=== PATIENT | female | born 2000 | race Caucasian/White ===

== ENCOUNTER 2019-12-26 16:25 | Emergency (ER) | payer OTHER, SELFPAY ==
[2019-12-26 17:00] VITALS: BP 137/85; PULSE 91; RESP 18; TEMP 36.6; O2SAT 99
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
[2019-12-26] MEDS: ACETAMINOPHEN 325 MG TABLET PO (19:04)
[2019-12-26] MEDS: IBUPROFEN 400 MG TABLET PO (19:04)
[2019-12-26 19:12] VITALS: BP 125/69; PULSE 81; O2SAT 100
== END 2019-12-26 19:13 | disposition home or self-care (01) ==
PROVIDERS: Emergency Provider Emergency Medicine
DX: S16.1XXA Strain of muscle, fascia and tendon at neck level, initial encounter (principal); V89.2XXA Person injured in unspecified motor-vehicle accident, traffic, initial encounter
CPT/HCPCS: 99282; 99283